=== PATIENT | female | born 1950 | race Caucasian/White ===

== ENCOUNTER 2019-10-22 12:30 | Outpatient (RCR) | payer MEDICARE ==
[2019-10-22] MEDS ORDERED: TRUL0.5I SC (13:00)
[2019-10-22] MEDS ORDERED: ELIQ5TAB PO (13:00)
[2019-10-22] MEDS ORDERED: ASPI81TA26 PO (13:00)
[2019-10-22] MEDS ORDERED: ATOR40TA75 PO (13:00)
[2019-10-22] MEDS ORDERED: LASI20TA3 PO (13:00)
[2019-10-22] MEDS ORDERED: SITA50TAB PO (13:00)
[2019-10-22] MEDS ORDERED: FOLI1TAB11 PO (13:00)
[2019-10-22] MEDS ORDERED: VITA500C24 PO (13:00)
[2019-10-22] MEDS ORDERED: FERR325T3 PO (13:00)
[2019-10-22] MEDS ORDERED: COLA100C5 PO (13:00)
[2019-10-22] MEDS ORDERED: ACET1TAB55 PO (13:00)
--- NOTE | 2019-10-22 13:41 | CARECAPL ---
Assessment Account #s: Initial Assessment General Diagnoses: CABG (x4) Date of event: Aug 22, 2020 Physician: Madhuri Castaneda MD Allergies: Coded Allergies: No Known Allergies (Verified , 04/01/03) Uncoded Allergies: N (Allergy, Unknown, 04/01/03) NKA (Allergy, Unknown, 04/01/03) Date Entered Program: Oct 22, 2019 Risk strat for cardiac event: Moderate Exercise Date: Oct 22, 2019 Assessment: Initial Assessment Stages of change: Contemplate Exercise Prescription Plan to build strength and endurance through a monitored exercise program, to educate about living a healthy life with cardiac disease Modalities initiated: Treadmill (will add), Nustep (will add), Arm Aerometer (will add), Dumbells (will add), Recumbent Bike (will add) Frequency: 2 Duration (Minutes) 30 - 60 minutes total exercise a day. 15 - 20 work intervals in minutes. PRN rest intervals in minutes. Functional Capacity Goal Sustained Metabolic Equivalent of a task (MET) goal of 2.5-3.5 for 15-20 minutes. Intensity: 3-Moderate Progression (METS) Increase by: .5 METS every: 2-3 sessions Angina with ex: No Target Heart Rate rest +35-40 betablocker therapy Resistance Training: Yes Reps: 6-8 Meds see below Medications Scheduled Apixaban (Eliquis), 5 MG PO BID, (Reported) Ascorbic Acid (Vitamin C), 500 MG PO DAILY, (Reported) Aspirin (Aspirin EC), 81 MG PO DAILY, (Reported) Atorvastatin Calcium (Atorvastatin Calcium), 40 MG PO QPM, (Reported) Docusate Sodium (Colace), 200 MG PO BID, (Reported) Dulaglutide (Trulicity), 1.5 MG SC Q7D, (Reported) Ferrous Sulfate (Ferrous Sulfate), 325 MG PO DAILY, (Reported) Folic Acid (Folic Acid), 1 MG PO DAILY, (Reported) Furosemide (Lasix), 20 MG PO DAILY, (Reported) Sitagliptin (Januvia), 50 MG PO DAILY, (Reported) Scheduled PRN Acetaminophen (Acetaminophen), 325 MG PO Q4-6HP PRN for pain or fever, (Reported) Target Goals Individual exercise Rx (1) BP 140/90 or 130/80 if DM or CKD (1) Aerobic active 30+min 5 days per week (1) Nutrition Date: Oct 22, 2019 Assessment: Initial Assessment Stages of change: Contemplate Lipid- med/supplement lipitor Diabetes Diabetes: Yes (type II) Diabetes medication Sunshine Goldman Monitor Blood Sugar at home: Yes Frequency daily Weight Management Weight (lbs): 203.4 Height (inches): 64 Waist Circumference (Inches): 53 BMI: 36 Weight goal: 200 Special Diet: other (consistant carbs) Alcohol: none Score: 33 Referral to weight mangement p: Yes Target goal LDL-C<100 if triglycerides are >200 Non-HDL-C should be <130 (1) LDL-C<70 for high risk patients (4) HbA1c<7% (1) BMI<25 Waist cir<40in M/<35in F (1) Education Date: Oct 22, 2019 Assessment: Initial Assessment Learning Barriers: ready, learn Knowledge Test Score: 10 Stages of change: Contemplate Family Support: Yes Tobacco use: No Target Goals Complete cessation of tobacco use (1). Psychosocial Date: Oct 22, 2019 Assessment: Initial Assessment Psych Test (Initial/Discharge) Tool Used: Other Score: 1 Stages of change: Preperation Target Goal Assess presence or absence of depression using a valid screening tool (1). Maximize coping skills (2). Positive support system (2). Provider Assessment Provider Assessment: Proceed with Josette Mcgowan RN Oct 22, 2019 13:41
== END 2019-10-26 ==
LOC: M CR 12:30
PROVIDERS: ATTEND Internal Medicine Cardiovascular Disease
DX: Z95.1 Presence of aortocoronary bypass graft (principal); Z51.89 Encounter for other specified aftercare

== ENCOUNTER 2019-11-19 15:02 | Outpatient (RCR) | payer MEDICARE ==
[2019-11-08 13:20] VITALS: BP 158/90
[2019-11-08 14:19] VITALS: BP 138/64
[2019-11-08 14:29] VITALS: BP 120/74
[2019-11-08 14:30] VITALS: BP 112/84
[2019-11-12 13:15] VITALS: BP 160/84
[2019-11-12 13:43] VITALS: BP 150/86
[2019-11-12 14:13] VITALS: BP 112/80
--- NOTE | 2019-11-12 16:18 | CARECAPL ---
Assessment Account #s: Re-Assessment I General Diagnoses: CABG (X4) Date of event: Aug 22, 2019 Physician: Madhuri Castaneda MD Allergies: Coded Allergies: No Known Allergies (Verified , 04/01/03) Uncoded Allergies: N (Allergy, Unknown, 04/01/03) NKA (Allergy, Unknown, 04/01/03) Date Entered Program: Oct 22, 2019 Risk strat for cardiac event: High Exercise Date: Nov 12, 2019 Assessment: Re-Assessment I Stages of change: Contemplate Exercise Prescription Plan TO EDUCATE AND BUILD ENDURANCE THROUGH MONITORED EXERCISE PROGRAM Modalities initiated: Nustep (METS=2.0/RPE=3), Arm Aerometer (METS=1.6/RPE=3), Dumbells (3#/RPE=3), Recumbent Bike (METS=2.6/RPE=4) Frequency: 3 Duration (Minutes) 30 - 60 minutes total exercise a day. 15 - 20 work intervals in minutes. PRN rest intervals in minutes. Functional Capacity Goal Sustained Metabolic Equivalent of a task (MET) goal of 2.5-3.5 for 15-20 minutes. Intensity: 3-Moderate Progression (METS) Increase by: 0.5 METS every: 5 sessions TOLERATED Angina with ex: No Target Heart Rate REST + 35-40 BASED ON BETA FADI THERAPY Resistance Training: Yes Weight (pounds): 3 Reps: 8-12 Hypertension: No Resting 160/84 Peak Exercise BP 150/86 Medications Scheduled Apixaban (Eliquis), 5 MG PO BID, (Reported) Ascorbic Acid (Vitamin C), 500 MG PO DAILY, (Reported) Aspirin (Aspirin EC), 81 MG PO DAILY, (Reported) Atorvastatin Calcium (Atorvastatin Calcium), 40 MG PO QPM, (Reported) Docusate Sodium (Colace), 200 MG PO BID, (Reported) Dulaglutide (Trulicity), 1.5 MG SC Q7D, (Reported) Ferrous Sulfate (Ferrous Sulfate), 325 MG PO DAILY, (Reported) Folic Acid (Folic Acid), 1 MG PO DAILY, (Reported) Furosemide (Lasix), 20 MG PO DAILY, (Reported) Sitagliptin (Januvia), 50 MG PO DAILY, (Reported) Scheduled PRN Acetaminophen (Acetaminophen), 325 MG PO Q4-6HP PRN for pain or fever, (Reported) Current BP 112/80 Med Change: No Intervention Home exercise: Type (WALKING, HOME EXERCISE EQUIPMENT, HAND WEIGHTS, JOIN LOCAL GYM OR MEET PROGRAM THROUGH CARDIAC REHAB), Frequency (3-5 X PER WEEK), Duration (30-60 MINUTES) Resistance Training: Yes Education: Self pulse (INSTRUCTED PATIENT TO TAKE HER OWN PULSE), Ex safety (PATIENT VERBALIZES UNDERSTANDING OF IMPORTANCE OF WARM UP/COOL DOWN PRIOR TO AND FOLLOWING EXERCISE, STAYING HYDRATED), S/S to report (PATIENT VERBALIZES TO REPORT CHEST PAIN OR PRESSURE, SOB, N/V, LIGHT HEADEDNESS), Low NA diet (PATIENT VERBALIZES THAT SHE IS TO AVOID SALT IN HER DIET DUE TO HER CARDIAC DISEASE), BP medication (REVIEWED PURPOSE/ACTION OF B/P MEDICATIONS), RPE Scale (REVIEWED RPE EFFORT SCALE WITH PATIENT, DEMONSTRATES INDEPENDENTLY FOLLOWING EACH PIECE OF EQUIPMENT), Equipment orientation (ORIENTED TO EACH PIECE OF EQUIPMENT), warm up/cool down (DEMONSTRATES INDEPENDENTLY WARM UP/COOL DOWN PRIOR TO AND FOLLOWING EXERCISE), Understand BP (PATIENT EDUCATED THAT IDEAL B/P 130/80 AND DISCUSSED HER B/P READINGS PRIOR TO, DURING, AND FOLLOWING EXERCISE), Physical Active (PATIENT VERBALIZES UNDERSTANDING OF IMPORTANCE OF CONTINUED EXERCISE FOLLOWING CARDIAC REHAB PROGRAM) Education Goals Met: No (PROGRESSING TOWARD GOALS) Target Goals Individual exercise Rx (1) BP 140/90 or 130/80 if DM or CKD (1) Aerobic active 30+min 5 days per week (1) Nutrition Date: Nov 12, 2019 Assessment: Re-Assessment I Stages of change: Contemplate Lipid- med/supplement ATORVASTATIN Med Change: No Diabetes Diabetes: Yes Diabetes medication SEEMA GARLAND Monitor Blood Sugar at home: Yes Medication Change: No Blood sugar in range: No Weight Management Weight (lbs): 204 Special Diet: low salt, low-fat Vitamin/Supplements: Vitamin C Current Weight (pounds): 204 Intervention Deckhand Consult: No Nurse/patient discussion: Yes Dietary Goals TO CHOOSE HEART HEALTHY DIET/SMALLER PORTIONS Diet Class: Yes (WILL MEET WITH PLATE SLITTER AND INSPECTOR WHILE IN PROGRAM) Referral to Diabetes education: No Referral to lipid clinic: No Referral to weight mangement p: No Education Eating Healthy Education Goals Met: No (PROGRESSING TOWARD GOALS) Target goal LDL-C<100 if triglycerides are >200 Non-HDL-C should be <130 (1) LDL-C<70 for high risk patients (4) HbA1c<7% (1) BMI<25 Waist cir<40in M/<35in F (1) Education Date: Nov 12, 2019 Assessment: Re-Assessment I Learning Barriers: ready Stages of change: Contemplate Family Support: Yes Tobacco use: No Tobacco Use Smokeless tobacco: No Intervention Referral to smoking cessation: No Individual education and couns: No Tobacco Adjunct: No Education class schedule given: No Attended education classes: No Education: CAD (PATIENT STATES THAT HIGH CHOLESTEROL CLOGS ARTERIES CAUSING CAD), Risk factors (PATIENT IS AWARE THAT OBESITY,ELEVATED CHOLESTEROL, AND DIABETES ARE RISK FACTORS FOR CAD), med compliance (PATIENT VERBALIZES UNDERSTANDING OF IMPORTANCE OF TAKING MEDICATIONS PRESCRIBED), cardiac A&P (TARIKMES HANDOUTS REVIEWED WITH PATIENT ON CARDIAC ANATOMY), Angina S/S (PATIENT UNDERSTANDS THAT CHEST PAIN,PRESSURE,SOB ARE S/S OF ANGINA), Sexuality (PATIENT IS AWARE THAT SHE NEEDS APPROVAL FROM MD PRIOR TO SEXUAL ACTIVITY) Education Goals Met: No (PROGRESSING TOWARD GOALS) Target Goals Complete cessation of tobacco use (1). Psychosocial Date: Nov 12, 2019 Assessment: Re-Assessment I Stages of change: Contemplate Intervention Physician Consult: No Physician Referral: No Med Change: No Stress Management Class: No Uses Stress Management Skills: Yes Education Education: Coping Techniques (DISCUSSED COPING MEASURES SUCH TAKING TIME FOR HERSELF, DISCUSSING HER FEELINGS WITH FAMILY OR FRIENDS), S/S depression (REVEIWED S/S OF DEPRESSION SUCH WITHDRAWAL, LACK OF INTEREST, LACK OF APPETITE, SECLUSION), Relaxation Techniques (DISCUSSED WAYS TO RELAX SUCH READING, LISTENING TO MUSIC, EXERCISING) Education Goals Met: No (PROGRESSING TOWARD GOALS) Target Goal Assess presence or absence of depression using a valid screening tool (1). Maximize coping skills (2). Positive support system (2). Patient/Program Goal Preventative Medication: Yes Aspirin, Yes Statin/OTR lipid Lowering, Yes Other (ELIQUIS) Fall Risk Assess: Yes (NOT A FALL RISK) Provider Assessment Session Number: 3 Provider Assessment: Proceed with rehab Jay Bragg RN Nov 12, 2019 16:18
[2019-11-15 13:24] VITALS: BP 160/92
[2019-11-15 13:45] VITALS: BP 158/90
[2019-11-15 14:22] VITALS: BP 122/78
[~2019-11-19] VITALS: Ht 160 cm; Wt 93.9 kg
[2019-11-19 13:32] VITALS: BP 130/74
[2019-11-19 14:00] VITALS: BP 140/80
[2019-11-19 14:34] VITALS: BP 118/70
[~2019-11-19 15:02] MED LIST: ACET1TAB55 PO; ASPI81TA26 PO; ATOR40TA75 PO; COLA100C5 PO; ELIQ5TAB PO; FERR325T3 PO; FOLI1TAB11 PO; LASI20TA3 PO; SITA50TAB PO; TRUL0.5I SC; VITA500C24 PO
== END 2019-11-24 ==
LOC: M CR 15:02
PROVIDERS: ATTEND Internal Medicine Cardiovascular Disease
DX: Z95.1 Presence of aortocoronary bypass graft (principal)

== ENCOUNTER 2019-11-26 13:44 | Outpatient (RCR) | payer MEDICARE ==
[~2019-11-26] VITALS: Ht 160 cm; Wt 93.0 kg
[2019-11-26 14:07] VITALS: BP_SYST 116; BP_SYST 124; BP_SYST 160; BP_DIAS 80
--- NOTE | 2019-12-03 10:42 | CARECAPL ---
Assessment Account #s: Re-Assessment II General Diagnoses: CABG Date of event: Aug 22, 2019 Physician: Madhuri Castaneda MD Allergies: Coded Allergies: No Known Allergies (Verified , 04/01/03) Uncoded Allergies: N (Allergy, Unknown, 04/01/03) NKA (Allergy, Unknown, 04/01/03) Date Entered Program: Oct 22, 2019 Risk strat for cardiac event: High Exercise Date: Dec 03, 2019 Assessment: Re-Assessment II Exercise Prescription Modalities initiated: Nustep (L2 12 MINUTES MTS 2.6 RPE 3), Arm Aerometer (2.0 MTS 2.0 RPE 3), Dumbells, Recumbent Bike (6 MINUTES MTS 2.6 RPE 4) Duration (Minutes) 30 - 60 minutes total exercise a day. 15 - 20 work intervals in minutes. PRN rest intervals in minutes. Functional Capacity Goal Sustained Metabolic Equivalent of a task (MET) goal of for minutes. Progression (METS) Increase by: 2.5-3.5 METS every: [2-3 sessions Resistance Training: Yes Weight (pounds): 3 Reps: 8-12 Resting 124/80 Peak Exercise BP 160/80 Meds SEE BELOW Medications Scheduled Apixaban (Eliquis), 5 MG PO BID, (Reported) Ascorbic Acid (Vitamin C), 500 MG PO DAILY, (Reported) Aspirin (Aspirin EC), 81 MG PO DAILY, (Reported) Atorvastatin Calcium (Atorvastatin Calcium), 40 MG PO QPM, (Reported) Docusate Sodium (Colace), 200 MG PO BID, (Reported) Dulaglutide (Trulicity), 1.5 MG SC Q7D, (Reported) Ferrous Sulfate (Ferrous Sulfate), 325 MG PO DAILY, (Reported) Folic Acid (Folic Acid), 1 MG PO DAILY, (Reported) Furosemide (Lasix), 20 MG PO DAILY, (Reported) Sitagliptin (Januvia), 50 MG PO DAILY, (Reported) Scheduled PRN Acetaminophen (Acetaminophen), 325 MG PO Q4-6HP PRN for pain or fever, (Reported) Current BP 124/80 Med Change: No Intervention Home exercise: Type (WALKING, LIFTING HAND WEIGHTS, JOIN LOCAL GYM) Resistance Training: Yes Education Goals Met: Yes (EDUCATIONS COMPLETED BUT ATTENDANCE POOR) Target Goals Individual exercise Rx (1) BP 140/90 or 130/80 if DM or CKD (1) Aerobic active 30+min 5 days per week (1) Nutrition Date: Dec 03, 2019 Assessment: Re-Assessment II Stages of change: Pre-contemplation Diabetes Diabetes: Yes Medication Change: No Random Blood Sugar: 157 Blood sugar in range: No Current Weight (pounds): 204.6 Intervention Diet Class: Yes (WILL SEE THIS PROGRAM) Education Goals Met: No (EDUCATION IN PROCESS-POOR ATTENDANCE) Target goal LDL-C<100 if triglycerides are >200 Non-HDL-C should be <130 (1) LDL-C<70 for high risk patients (4) HbA1c<7% (1) BMI<25 Waist cir<40in M/<35in F (1) Education Date: Dec 03, 2019 Assessment: Re-Assessment II Education Goals Met: No (POOR ATTENDANCE) Target Goals Complete cessation of tobacco use (1). Psychosocial Date: Dec 03, 2019 Assessment: Re-Assessment II Education Goals Met: No (POOR ATTENDANCE) Target Goal Assess presence or absence of depression using a valid screening tool (1). Maximize coping skills (2). Positive support system (2). Provider Assessment Session Number: 6 Provider Assessment: No changes Josette Contreras RN Dec 03, 2019 10:42
--- NOTE | 2019-12-13 10:09 | CARECAPL ---
General Allergies: Coded Allergies: No Known Allergies (Verified , 04/01/03) Uncoded Allergies: N (Allergy, Unknown, 04/01/03) NKA (Allergy, Unknown, 04/01/03) Exercise Prescription Duration (Minutes) 30 - 60 minutes total exercise a day. 15 - 20 work intervals in minutes. PRN rest intervals in minutes. Functional Capacity Goal Sustained Metabolic Equivalent of a task (MET) goal of for minutes. Progression (METS) Increase by: METS every: sessions Medications Scheduled Apixaban (Eliquis), 5 MG PO BID, (Reported) Ascorbic Acid (Vitamin C), 500 MG PO DAILY, (Reported) Aspirin (Aspirin EC), 81 MG PO DAILY, (Reported) Atorvastatin Calcium (Atorvastatin Calcium), 40 MG PO QPM, (Reported) Docusate Sodium (Colace), 200 MG PO BID, (Reported) Dulaglutide (Trulicity), 1.5 MG SC Q7D, (Reported) Ferrous Sulfate (Ferrous Sulfate), 325 MG PO DAILY, (Reported) Folic Acid (Folic Acid), 1 MG PO DAILY, (Reported) Furosemide (Lasix), 20 MG PO DAILY, (Reported) Sitagliptin (Januvia), 50 MG PO DAILY, (Reported) Scheduled PRN Acetaminophen (Acetaminophen), 325 MG PO Q4-6HP PRN for pain or fever, (Reported) Target Goals Individual exercise Rx (1) BP 140/90 or 130/80 if DM or CKD (1) Aerobic active 30+min 5 days per week (1) Target goal LDL-C<100 if triglycerides are >200 Non-HDL-C should be <130 (1) LDL-C<70 for high risk patients (4) HbA1c<7% (1) BMI<25 Waist cir<40in M/<35in F (1) Target Goals Complete cessation of tobacco use (1). Target Goal Assess presence or absence of depression using a valid screening tool (1). Maximize coping skills (2). Positive support system (2). Provider Assessment Provider Assessment: Please add/change: (Patient placed on hold d/t Covid-19 pandemic. ) Mariana Melgoza RN Dec 13, 2019 10:09
--- NOTE | 2019-12-14 13:43 | CARECAPL ---
General Allergies: Coded Allergies: No Known Allergies (Verified , 04/01/03) Uncoded Allergies: N (Allergy, Unknown, 04/01/03) NKA (Allergy, Unknown, 04/01/03) Exercise Prescription Duration (Minutes) 30 - 60 minutes total exercise a day. 15 - 20 work intervals in minutes. PRN rest intervals in minutes. Functional Capacity Goal Sustained Metabolic Equivalent of a task (MET) goal of for minutes. Progression (METS) Increase by: METS every: sessions Medications Scheduled Apixaban (Eliquis), 5 MG PO BID, (Reported) Ascorbic Acid (Vitamin C), 500 MG PO DAILY, (Reported) Aspirin (Aspirin EC), 81 MG PO DAILY, (Reported) Atorvastatin Calcium (Atorvastatin Calcium), 40 MG PO QPM, (Reported) Docusate Sodium (Colace), 200 MG PO BID, (Reported) Dulaglutide (Trulicity), 1.5 MG SC Q7D, (Reported) Ferrous Sulfate (Ferrous Sulfate), 325 MG PO DAILY, (Reported) Folic Acid (Folic Acid), 1 MG PO DAILY, (Reported) Furosemide (Lasix), 20 MG PO DAILY, (Reported) Sitagliptin (Januvia), 50 MG PO DAILY, (Reported) Scheduled PRN Acetaminophen (Acetaminophen), 325 MG PO Q4-6HP PRN for pain or fever, (Reported) Target Goals Individual exercise Rx (1) BP 140/90 or 130/80 if DM or CKD (1) Aerobic active 30+min 5 days per week (1) Target goal LDL-C<100 if triglycerides are >200 Non-HDL-C should be <130 (1) LDL-C<70 for high risk patients (4) HbA1c<7% (1) BMI<25 Waist cir<40in M/<35in F (1) Target Goals Complete cessation of tobacco use (1). Psychosocial Date: Dec 14, 2019 Target Goal Assess presence or absence of depression using a valid screening tool (1). Maximize coping skills (2). Positive support system (2). Provider Assessment Provider Assessment: No changes (cardiac rehab program closed d/t covid 19. pt account on hold) Josette Contreras RN Dec 14, 2019 13:43
== END 2019-12-25 ==
LOC: M CR 13:44
PROVIDERS: ATTEND Internal Medicine Cardiovascular Disease
DX: Z51.89 Encounter for other specified aftercare (principal); Z95.1 Presence of aortocoronary bypass graft